=== PATIENT | male | born 2000 | race Two or more races ===

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

== ENCOUNTER 2019-07-13 05:58 | Emergency (ER) | payer MEDICAID ==
[~2019-07-13] VITALS: Ht 180.3 cm; Wt 57.2 kg
[2019-07-13 06:09] VITALS: BP 128/78
[2019-07-13] MEDS ORDERED: KETOROLAC TROMETH 30 MG/ML 1ML VIAL IM ONE (07:45)
[2019-07-13] MEDS ORDERED: HYDROcodone-ACET 5/325MG TAB PO ONE (07:45)
== END 2019-07-13 08:15 | disposition home or self-care (01) ==
LOC: ER 06:01
DX: S52.572A Other intraarticular fracture of lower end of left radius, initial encounter for closed fracture (principal); V00.131A Fall from skateboard, initial encounter; Y93.51 Activity, roller skating (inline) and skateboarding; Y92.89 Other specified places as the place of occurrence of the external cause; Y99.8 Other external cause status
CPT/HCPCS: 29125; 73110; 96372; 99283; J1885